=== PATIENT | male | born 2005 | race Caucasian/White ===

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

== ENCOUNTER 2024-09-10 11:03 | Emergency (ER) | payer SELFPAY ==
--- NOTE | ~2024-09-10 | XR_ITS ---
EXAMINATION: XR ankle RT min 3V, XR foot RT min 3V DATE: 09/10/2024 11:29 INDICATION: Posterior and lateral right foot and ankle pain TECHNIQUE: 1. Anteroposterior, mortise, additional oblique and lateral view of the right ankle were obtained. 2. Dorsoplantar, two oblique and lateral views of the right foot were obtained. COMPARISON: None. FINDINGS: Alignment of the right foot and ankle is normal. No fracture. Joint spaces are well maintained. No an kle joint effusion. There is soft tissue swelling about the ankle, both medially and laterally as wel l as extending over the dorsum of the mid and hindfoot. IMPRESSION: 1. Soft tissue swelling. No osseous abnormality. Reviewed, dictated and finalized at location B. NURSE IMPRESSION: 1. Soft tissue swelling. No osseous abnormality.
[2024-09-10 11:12] VITALS: BP 139/65; PULSE 89; RESP 18; TEMP 36.8; O2SAT 99
--- NOTE | 2024-09-10 11:15 | ED_ITS ---
HPI - Extremity Injury (Lower) General Chief Complaint: Extremity Injury, Lower Stated Complaint: RT foot Pain Time Seen by Provider: 09/10/24 11:16 Source: patient, RN notes reviewed and old records reviewed Mode of arrival: ambulatory Limitations: no limitations History of Present Illness HPI Narrative: patient presents with complaints of right foot and ankle pain. He reports that he dropped a 55 gal drum that weighs approximately 400 lb on to the foot yesterday. He is not sure if he twisted his ankle at the same time or not, states injury happened quickly and he was just eager to get the drum off of his foot. He reports he has been icing and elevating the affected extremity, taking ibuprofen. Says the bruising is worse today than it was yesterday. Pain is increased with weight-bearing, but patient is able to do so Related Data Allergies Allergy/AdvReac Type Severity Reaction Status Date / Time No Known Allergies Allergy Mild Verified 09/10/24 11:05 Review of Systems 2 Review of Systems: All systems reviewed & are unremarkable except as noted in HPI and below Constitutional: Constitutional: Reports no additional constitutional complaints ENT: Reports system reviewed and no additional complaints, except as documented Cardiovascular: Cardiovascular: Reports no additional cardiovascular complaints Respiratory: Respiratory: Reports no additional respiratory complaints Gastrointestinal: Gastrointestinal: Reports no additional gastrointestinal complaints Musculoskeletal: Musculoskeletal: Reports as per HPI Integumentary/Breasts: Skin/Breast: Reports unusual bruising PMFSH Comments At the time of my signature, I reviewed and agree with the nursing past medical, surgical, social, and family history. There is no relevant family history pertinent to the patient complaint. Exam 2 Const: General: cooperative, no acute distress, alert and awake O rientation/consciousness: oriented to person, oriented to place and oriented to time HENMT: Head: normal to inspection Resp: Effort & Inspection: normal respiratory effort and able to speak in complete sentences Auscultation: clear to auscultation bilaterally, no crackles, no rales, no rhonchi and no wheezes Cardio: Palpation: normal PMI Rate: regular rate Rhythm: regular rhythm Heart sounds: S1 normal heart sound present and S2 normal heart sound present Neuro: General: oriented to person, oriented to place and oriented to time Cranial nerves: Yes CN's II-XII intact bilaterally Extrem: Right lower extremity: ankle Details: ecchymosis (ankle) and foot Details: normal capillary refill and vascular exam Details: dorsalis pedis pulse present, posterior tibial pulse present and normal capillary refill Ankle/foot/toe images: 1. bruising 2. bruising Psych: Appearance: grossly normal Thought process: Normal thought process present Insight: Good insight present (Psych) Judgement: Good judgement present (Psych) Course Course Level of Care: Express Care Visit Vital Signs Vital signs: Vital Signs Temperature 98.2 F 09/10/24 11:12 Pulse Rate 89 09/10/24 11:12 Respiratory Rate 18 09/10/24 11:12 Blood Pressure 139/65 09/10/24 11:12 Pulse Oximetry 99 09/10/24 11:12 Oxygen Delivery Room Air 09/10/24 11:12 Temperature 98.2 F 09/10/24 11:12 Pulse Rate 89 09/10/24 11:12 Respiratory Rate 18 09/10/24 11:12 Blood Pressure 139/65 09/10/24 11:12 Pulse Oximetry 99 09/10/24 11:12 Oxygen Delivery Room Air 09/10/24 11:12 Reviewed MDM - Extremity Injury (Lower) MDM Narrative Medical decision making narrative: right foot/ankle with mild swelling, bruising. Negative x-rays. RICE therapy discussed. Discharge instructions reviewed with patient, as well as provided in writing per nursing staff. The instructions also include specific and strict return/GO TO THE ER as well as f/u information. All questions have been answered, and the patient deny any further questions with discharge and discharge plan. Some parts of this dictation were generated by voice recognition software and may contain typographical and/or grammatical inaccuracies. Differential Diagnosis Differential diagnosis: Likely ankle sprain and strain Medical Records Attestation: I reviewed the patient's medical records. Imaging Data Attestation: I personally reviewed and interpreted this imaging study as follows: My impression: no fracture Radiologist's impression: [facility] [address] [address] XRay Report Signed Patient: Brannon Lopez : 2005 MR#: [id number] Age: 18 Acct:[id number] Loc: [facility] ADM Date: 09/10/24Attending Dr: Ordering Physician: Kaitlin Langford FNP Date of Service: 09/10/24 Procedure(s): XR ankle RT min 3V; XR foot RT min 3V Accession Number(s): [id number]; [id number] cc: Kaitlin Langford FNP; Cathy, Jeannette AVILAN~ EXAMINATION: XR ankle RT min 3V, XR foot RT min 3V DATE: 09/10/2024 11:29 INDICATION: Posterior and lateral right foot and ankle pain TECHNIQUE: 1. Anteroposterior, mortise, additional oblique and lateral view of the right ankle were obtained. 2. Dorsoplantar, two oblique and lateral views of the right foot were obtained. COMPARISON: None. FINDINGS: Alignment of the right foot and ankle is normal. No fracture. Joint spaces are well maintained. No ankle joint effusion. There is soft tissue swelling about the ankle, both medially and laterally as well as extending over the dorsum of the mid and hindfoot. IMPRESSION: 1. Soft tissue swelling. No osseous abnormality. Reviewed, dictated and finalized at location B. [employer]OR OF ARCHIVES Please be advised this is a medical document. It is intended for jzah-bp-nwyl communication. It is written in medical language and may contain unfamiliar abbreviations or verbiage. Medical documents are intended to carry relevant information, facts as evident, and the clinical opinion of the practitioner at the time of the encounter. This report may have been done utilizing a voice recognition system. Attempts have been made to correct errors. However, there may be uncorrected grammatical, spelling, and recognition errors present. The file time of this note does not necessarily represent the time the patient was seen. Dictated By: Aayush Dave MD 09/10/24 1134 Signed By: <Electronically signed by Aayush Dave MD in [place]> 09/10/[id number] [address] XRay Report Signed Patient: Brannon Lopez : 2005 MR#: [id number] Age: 18 Acct:[id number] Loc: [facility] ADM Date: 09/10/24Attending Dr: Ordering Physician: Kaitlin Langford FNP Date of Service: 09/10/24 Procedure(s): XR ankle RT min 3V; XR foot RT min 3V Accession Number(s): [id number]; [id number] cc: Kaitlin Langford FNP; Cathy, Jeannette Armstrong T[employer] FOLDING MACHINE OPERATOR~ EXAMINATION: XR ankle RT min 3V, XR foot RT min 3V DATE: 09/10/2024 11:29 INDICATION: Posterior and lateral right foot and ankle pain TECHNIQUE: 1. Anteroposterior, mortise, additional oblique and lateral view of the right ankle were obtained. 2. Dorsoplantar, two oblique and lateral views of the right foot were obtained. COMPARISON: None. FINDINGS: Alignment of the right foot and ankle is normal. No fracture. Joint spaces are well maintained. No ankle joint effusion. There is soft tissue swelling about the ankle, both medially and laterally as well as extending over the dorsum of the mid and hindfoot. IMPRESSION: 1. Soft tissue swelling. No osseous abnormality. Reviewed, dictated and finalized at location B. [employer]OR OF ARCHIVES Please be advised this is a medical document. It is intended for mplu-hj-qmre communication. It is written in medical language and may contain unfamiliar abbreviations or verbiage. Medical documents are intended to carry relevant information, facts as evident, and the clinical opinion of the practitioner at the time of the encounter. This report may have been done utilizing a voice recognition system. Attempts have been made to correct errors. However, there may be uncorrected grammatical, spelling, and recognition errors present. The file time of this note does not necessarily represent the time the patient was seen. Dictated By: Aayush Dave MD 09/10/24 1134 Signed By: <Electronically signed by Aayush Dave MD in [place]> Discharge Plan Discharge Clinical Impression: Foot injury Qualifiers: Encounter type: initial encounter Laterality: right Qualified Code(s): S99.921A - Unspecified injury of right foot, initial encounter Patient Disposition: Home, Self-Care Condition: Stable Instructions: Antibiotic Form, P.R.I.C.E. Treatment (ED) Additional Instructions: use ibuprofen or naproxen sodium per package instructions as needed for pain. Keep affected extremity elevated as much as practical. Follow with primary care provider. Emergency department for new or worse symptoms Patient Language: Croatian Prescriptions: No Action ibuprofen 600 mg tablet 600 mg PO TID PRN (Reason: fever or pain) Qty: 20 0RF amoxicillin-pot clavulanate [Augmentin] 875-125 mg tablet 1 tablet PO Q12H 10 Days Qty: 20 0RF Follow-up/Referrals: Cathy,VICENTA Barron [Primary Care Provider] - 2 Weeks Time of Disposition: 11:48
== END 2024-09-10 11:49 | disposition home or self-care (01) ==
PROVIDERS: Emergency Provider Nurse Practitioner Family; PCP Nurse Practitioner
DX: S99.921A Unspecified injury of right foot, initial encounter (principal); W20.8XXA Other cause of strike by thrown, projected or falling object, initial encounter; Z86.16 Personal history of COVID-19
CPT/HCPCS: 73610; 73630; 99213; G0463

== ENCOUNTER 2025-02-06 13:18 | Emergency (ER) | payer SELFPAY ==
[2025-02-06 13:28] VITALS: BP 136/71; PULSE 86; RESP 16; TEMP 36.9; O2SAT 100
--- NOTE | 2025-02-06 13:57 | ED_ITS ---
HPI - Ear Problem General Chief complaint: Ear Stated complaint: rt ear pain Time Seen by Provider: 02/06/25 13:35 Source: patient, family and RN notes reviewed Mode of arrival: ambulatory Limitations: no limitations History of Present Illness HPI Narrative: 19-year-old male presents [facility] complaining of right ear pain for 1 week. Patient denies any recent swelling but states when he showers he does run water ears ears. Patient denies any discharge reports he feels a fullness in his right ear. Patient denies any left ear issues. Patient denies any upper respiratory symptoms, cough, fevers, dizziness, tinnitus, or any other symptoms. Patient has not tried anything [id number] to help. Related Data Allergies Allergy/AdvReac Type Severity Reaction Status Date / Time No Known Allergies Allergy Mild Verified 02/06/25 13:29 Review of Systems Review of Systems: CONSTITUTIONAL: Denies fever, chills, or sweats. EYES: Denies visual changes, blurry vision, redness, or discharge. ENT: Denies rhinorrhea, congestion, sore throat,. Positive for otalgia and right ear fullness. CARDIOVASCULAR: Denies chest pain, palpitations, dizziness, or edema. RESPIRATORY: Denies cough or dyspnea. GASTROINTESTINAL: Denies abdominal pain, nausea, vomiting, or diarrhea. GENITOURINARY: Denies dysuria or hematuria. SKIN: Denies rash or itching. MUSCULOSKELETAL: Denies back pain, joint pain, or myalgia. NEUROLOGIC: Denies headache, numbness, or weakness. PSYCHIATRIC: Denies anxiety or depression. All other systems reviewed are negative, except as documented in HPI. PMFSH Comments At the time of my signature, I reviewed and agree with the nursing past medical, surgical, social, and family history. There is no relevant family history pertinent to the patient complaint. Exam Narrative: GENERAL: This is a well-nourished, well-developed adult, in no apparent distress. They are non ill-appearing, nontoxic appearing. HEAD: normocephalic, atraumatic. EYES: Sclera clear/white. Conjunctiva normal. Vision is grossly intact. Extraocular movements intact. Pupils PERRLA. No nystagmus. EARS: External ears normal, left auditory canals clear and without redness, swelling, drainage. Right tragal tenderness. Right auditory canal erythematous and macerated. No exudate. TMs normal without perforation. Hearing grossly intact. No mastoid tenderness bilaterally. NOSE: External nose normal with no obvious nasal discharge, nasal turbinates without redness, no rhinorrhea. THROAT: Mucous membranes moist, posterior pharynx clear, without erythema or swelling. Uvula midline. NECK: Neck supple, non-tender without lymphadenopathy, masses or thyromegaly. CARDIOVASCULAR: Regular rate and rhythm without murmurs, gallops, or rubs. RESPIRATORY: Clear to auscultation. Breath sounds equal bilaterally. No wheezes, rales, or rhonchi. SKIN: warm, Dry, intact with no suspicious lesions or rash, good texture and turgor. NEURO: awake, alert, and oriented to person, place and time. There were no obvious focal neurologic abnormalities. EXTREMITIES: No joint tenderness, effusion, or edema noted. Course Course Emergency Course: Portions of this record may have been created with voice recognition software Level of Care: Express Care Visit Vital Signs Vital signs: Vital Signs Temperature 98.5 F 02/06/25 13:28 Pulse Rate 86 02/06/25 13:28 Respiratory Rate 16 02/06/25 13:28 Blood Pressure 136/71 02/06/25 13:28 Pulse Oximetry 100 02/06/25 13:28 Oxygen Delivery Room Air 02/06/25 13:28 Temperature 98.5 F 02/06/25 13:28 Pulse Rate 86 02/06/25 13:28 Respiratory Rate 16 02/06/25 13:28 Blood Pressure 136/71 02/06/25 13:28 Pulse Oximetry 100 02/06/25 13:28 Oxygen Delivery Room Air 02/06/25 13:28 Reviewed Medical Decision Making MDM Narrative Medical decision making narrative: Patient has a right-sided otitis externa. Will treat ofloxacin ear drops along with dexamethasone drops to help with swelling. Patient does not have health insurance, good Rx card given the patient. Discussed physical exam findings. Advised supportive measures and signs/symptoms to go to the ER. Pt is appropriate for outpt treatment and f/u. Differential Diagnosis Differential Diagnosis: Otitis media, otitis externa, upper respiratory infection Vital Signs Vital Signs: Vital Signs Temperature 98.5 F 02/06/25 13:28 Pulse Rate 86 02/06/25 13:28 Respiratory Rate 16 02/06/25 13:28 Blood Pressure 136/71 02/06/25 13:28 Pulse Oximetry 100 02/06/25 13:28 Oxygen Delivery Room Air 02/06/25 13:28 Temperature 98.5 F 02/06/25 13:28 Pulse Rate 86 02/06/25 13:28 Respiratory Rate 16 02/06/25 13:28 Blood Pressure 136/71 02/06/25 13:28 Pulse Oximetry 100 02/06/25 13:28 Oxygen Delivery Room Air 02/06/25 13:28 Critical Care Time Critical Care Time Critical Care Time: No Discharge Plan Discharge Clinical Impression: Otitis externa Qualifiers: Otitis externa type: unspecified type Chronicity: acute Laterality: right Qualified Code(s): H60.501 - Unspecified acute noninfective otitis externa, right ear Patient Disposition: Home Condition: Stable Instructions: Antibiotic Form, Ear Infection (ED) Additional Instructions: Swimmer's ear is an infection in the outer ear canal, which runs from your eardrum to the outside of your head. It's often caused by water that remains in your ear, creating a moist environment that encourages the growth of bacteria. Take antibiotic drops as directed. Use dexamethasone ear drops as directed for inflammation and swelling. Tylenol and ibuprofen every 8 hours as needed to reduce fever, pain Avoid water or anything into the ear for one week Follow up with your personal physician for further evaluation and treatment within 3-5days. If your symptoms persist, change or worsen significantly, go to the emergency department for further evaluation. Patient Language: Malagasy Prescriptions: New ofloxacin 0.3 % drops 10 drp RIGHT EAR DAILY 7 Days Qty: 10 0RF dexamethasone 0.1 % drops,suspension 4 drp RIGHT EAR BID 3 Days Qty: 5 0RF Follow-up/Referrals: Cathy,VICENTA Barron [Primary Care Provider] - Time of Disposition: 13:45
== END 2025-02-06 13:53 | disposition home or self-care (01) ==
PROVIDERS: PCP Nurse Practitioner
DX: H60.501 Unspecified acute noninfective otitis externa, right ear (principal); F17.290 Nicotine dependence, other tobacco product, uncomplicated; Z86.16 Personal history of COVID-19
CPT/HCPCS: 99213; G0463